=== PATIENT | male | born 1985 | race Caucasian/White ===

== ENCOUNTER 2025-05-18 12:33 | Emergency (ER) | payer OTHER ==
[~2025-05-18] VITALS: Ht 185.4 cm; Wt 106.0 kg
[2025-05-18 12:34] VITALS: BP 155/86; TEMP 98.1; O2SAT 98
[2025-05-18] MEDS ORDERED: bupropion (12:40)
[2025-05-18] MEDS: FLUORESCEIN OPHTH 1 MG STRIP OS ONE (14:02)
[2025-05-18] MEDS: PROPARACAINE 0.5% OPHTH SOL 15ML OS ONE (14:02)
[2025-05-18] MEDS ORDERED: ERYT5OIN25 OS (14:39)
[2025-05-18] MEDS: ERYTHROMYCIN OPHTH OINT OS ONE (14:41)
== END 2025-05-18 14:45 | disposition home or self-care (01) ==
LOC: M ED 12:33
DX: S05.02XA Injury of conjunctiva and corneal abrasion without foreign body, left eye, initial encounter (principal); W44.8XXA Other foreign body entering into or through a natural orifice, initial encounter; Y92.018 Other place in single-family (private) house as the place of occurrence of the external cause; Y93.89 Activity, other specified; Y99.9 Unspecified external cause status